=== PATIENT | male | born 1995 | race Caucasian/White ===

== ENCOUNTER 2016-09-11 03:13 | Emergency (ER) | payer OTHER ==
[~2016-09-11] VITALS: Ht 180.3 cm; Wt 76.7 kg
[2016-09-11 03:28] VITALS: BP 135/71; TEMP 36.7; Ht 180.3 cm; Wt 76.7 kg
[2016-09-11] MEDS ORDERED: LIDOCAINE/EPINEPH/TETRACAINE 1 EA SYR EXT STA ×2 (03:52)
[2016-09-11] MEDS ORDERED: OXYMETAZOLINE HCL 0.05% NA SPR 15 ML BTL ONE (04:37)
[2016-09-11] MEDS ORDERED: ONDANSETRON HOME PACK 4MG OD TAB PO ONE (05:15)
[2016-09-11] MEDS ORDERED: AMOXICIL/CLAVU 875MG HOME PACK PO ONE (05:15)
[2016-09-11] MEDS ORDERED: OXYCODONE IR HOME PACK PO ONE (05:15)
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
[2016-09-11] MEDS ORDERED: AMOX875T PO (05:17)
[2016-09-11 05:29] VITALS: PULSE 78; O2SAT 98
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
== END 2016-09-11 05:45 | disposition home or self-care (01) ==
LOC: C.EDB 03:15
DX: S01.81XA Laceration without foreign body of other part of head, initial encounter (principal); S09.90XA Unspecified injury of head, initial encounter; S00.31XA Abrasion of nose, initial encounter; S02.2XXA Fracture of nasal bones, initial encounter for closed fracture; Y09 Assault by unspecified means; H11.32 Conjunctival hemorrhage, left eye; R04.0 Epistaxis